=== PATIENT | female | born 1995 | race Caucasian/White ===

== ENCOUNTER 2017-10-28 18:09 | Emergency (ER) | payer OTHER ==
[2017-10-28 19:16] LABS: Hemoglobin 13.9 gm/dl (10.1-14.3); Mean Corpuscular HGB Conc 33 % (30-34); Mean Corpuscular Hemoglobin 27 pg (28-32); Mean Corpuscular Volume 82 fl (79-97); Platelet Count 267 K/mm3 (140-440); Red Cell Distribution Width 15.4 % (13.2-15.2)
[2017-10-28] MEDS ORDERED: ZOFRAN ONE (19:18)
[2017-10-28 19:22] LABS: HCG Qualitative,Urine Negative (Negative)
[2017-10-28 19:25] LABS: Bilirubin,Urine NEG (Negative); Blood,Urine NEG (Negative); Color,Urine Yellow (Yellow); Mucus,Urine 1+ /HPF; Urobilinogen,Urine < 2.0 mg/dL (<2.0); WBC,Urine < 1.0 /HPF (0.0-6.0)
[2017-10-28 19:28] LABS: BUN/Creatinine Ratio 17; Blood Urea Nitrogen 10 mg/dL (7-17); Calcium 9.7 mg/dL (8.4-10.2); Hemolysis Index 6
[2017-10-28] MEDS ORDERED: NACL 0.9% 1000 ML 1,000 ML IV ONE (19:40)
[2017-10-28] MEDS ORDERED: ZOFRAN IV ONE (19:40)
--- NOTE | 2017-10-28 20:24 | Emergency Department Report ---
HPI - General Chief Complaint: Seizure Time Seen by Provider: 10/28/17 19:18 - HPI HPI: 22-year-old female presents to the emergency department via EMS from home after she had a witnessed seizure. The patient had some tonic clonic like movements for about 2 or 3 minutes. She bit the right side of her tongue. She did not return to a normal baseline mental status for about 30 minutes or until she presented to the emergency department. She does not have any previous seizure history or any past medical history. She was not given anything for her symptoms prior to presentation. She does not have a primary care physician. She admits to tobacco, marijuana and occasional Xanax use recreationally. No recent travel or sick contacts at home. She denies any headache, vision change , slurred speech or any other neurological deficits. ED Past Medical Hx - Past Medical History Previous Medical History?: No - Surgical History Past Surgical History?: No - Social History Smoking Status: Current Every Day Smoker Substance Use Type: Alcohol, Marijuana - Medications Home Medications: Home Medications Medication Instructions Recorded Confirmed Last Taken Type levETIRAcetam [Keppra TAB] 500 mg PO BID #60 tablet 10/28/17 Unknown Rx ED Review of Systems ROS: Stated complaint: SEIZURE Other details as noted in HPI Comment: All other systems reviewed and negative Constitutional: denies: chills, fever Eyes: denies: eye pain, eye discharge, vision change ENT: other (bit her tongue). denies: ear pain, throat pain Respiratory: denies: cough, shortness of breath, wheezing Cardiovascular: denies: chest pain, palpitations Gastrointestinal: denies: abdominal pain, nausea, diarrhea Genitourinary: denies: urgency, dysuria, discharge Musculoskeletal: denies: back pain, joint swelling, arthralgia Skin: denies: rash, lesions Neurological: other (seizure). denies: weakness Physical Exam - Physical Exam Vital Signs: Vital Signs 10/28/17 10/28/17 10/28/17 18:45 18:49 19:15 Temperature 98.2 F 98.1 F Pulse Rate 72 69 Respiratory 13 18 Rate Blood Pressure 125/75 Blood Pressure 133/79 [Left] O2 Sat by Pulse 98 98 98 Oximetry Physical Exam: GENERAL: The patient is well-developed well-nourished. HENT: Normocephalic. Atraumatic. Patient has moist mucous membranes. Patient has multiple abrasions and/or small lacerations to the right side of her tongue consistent with biting her tongue. No drooling or trismus. Posterior oropharynx clear. EYES: Extraocular motions are intact. Pupils equal reactive to light bilaterally. No nystagmus. NECK: Supple. Trachea is midline. CHEST/LUNGS: Clear to auscultation. There is no respiratory distress noted. HEART/CARDIOVASCULAR: Regular. There is no tachycardia. There is no murmur. ABDOMEN: Abdomen is soft, nontender. Patient has normal bowel sounds. There is no abdominal distention. SKIN: Skin is warm and dry. NEURO: The patient is awake, alert, and oriented. The patient is cooperative. The patient has no focal neurologic deficits. The patient has normal speech. Cranial nerves II through XII grossly intact. MUSCULOSKELETAL: There is no tenderness or deformity. There is no limitation range of motion. There is no evidence of acute injury. ED Course Vital Signs 10/28/17 10/28/17 10/28/17 18:45 18:49 19:15 Temperature 98.2 F 98.1 F Pulse Rate 72 69 Respiratory 13 18 Rate Blood Pressure 125/75 Blood Pressure 133/79 [Left] O2 Sat by Pulse 98 98 98 Oximetry ED Medical Decision Making - Lab Data Result diagrams: 10/28/17 19:03 10/28/17 19:03 - Radiology Data Radiology results: report reviewed PROCEDURE: CT head without contrast. TECHNIQUE: Computerized tomography of the head was performed without contrast material. HISTORY: Seizure. COMPARISON: No prior studies are available for comparison. FINDINGS: There is motion artifact on a few of the images. The ventricles are normal in size. The osborne matter and white matter appear normal. There are no mass lesions. There is no intracranial hemorrhage. The calvarium appears intact. The mastoid air cells and visualized paranasal sinuses are clear. IMPRESSION: Normal study. Transcribed By: MRM Dictated By: ROSAS GONZÁLES MD Electronically Authenticated By: ROSAS GONZÁLES MD Signed Date/Time: 10/28/172025 - Medical Decision Making Patient presented after having a witnessed seizure without any seizure history. It sounds like she had some type of a postictal period prior to arrival but since presentation she is awake and alert. There are no focal, motor or sensory deficits in her cranial nerves are intact. CT scan of the head does not show any bleed, shift, mass, ischemic changes or any acute process. The blood work is unremarkable for any etiology of her symptoms. She was covered with a dose of Keppra. Patient had one episode of vomiting when she first arrived that looked mostly bloody. However I believe the patient may have swallowed a moderate amount of blood from her tongue lacerations/abrasions and then this irritated her GI tract and she vomited up. After this one episode, the patient has not had any further vomiting. She has no abdominal or midline chest pain. Patient's vital signs are stable throughout her ED course. There has been no further seizure-like activity and the patient has been reevaluated multiple times over multiple hours. She appears safe for discharge home at this time. She will be started on Keppra and has been given a neurology referral. She has been instructed to return to the emergency Department with any worsening of her symptoms or any acute distress. - Differential Diagnosis epilepsy, substance abuse, hyponatremia, hypoglycemia Critical Care Time: No Critical care attestation.: If time is entered above; I have spent that time in minutes in the direct care of this critically ill patient, excluding procedure time. ED Disposition Clinical Impression: New onset seizure Disposition: DC-01 TO HOME OR SELFCARE Is pt being admited?: No Condition: Stable Instructions: New-Onset Seizure in Adults (ED) Additional Instructions: Please follow up with a primary care physician and neurologist in the next few days. I have given you a referral for a local neurologist, Dr. Soriano. I have started you on a seizure medication called Keppra that is to be taken twice daily. Please try and stay away from any alcohol or illicit drug use. Return to the emergency department with any recurrent seizures, worsening of your symptoms, or with any acute distress. Prescriptions: levETIRAcetam [Keppra TAB] 500 mg PO BID #60 tablet Referrals: PRIMARY MD LUIS [Primary Care Provider] - 3-5 Days JUDY SORIANO MD [Staff Physician] - 3-5 Days Time of Disposition: 22:33
--- NOTE | 2017-10-28 20:30 | Cat Scan Report ---
FINAL REPORT PROCEDURE: CT head without contrast. TECHNIQUE: Computerized tomography of the head was performed without contrast material. HISTORY: Seizure. COMPARISON: No prior studies are available for comparison. FINDINGS: There is motion artifact on a few of the images. The ventricles are normal in size. The osborne matter and white matter appear normal. There are no mass lesions. There is no intracranial hemorrhage. The calvarium appears intact. The mastoid air cells and visualized paranasal sinuses are clear. IMPRESSION: Normal study.
[2017-10-28] MEDS ORDERED: KEPPRA 1,000 MG/NS 0.75% 100ML 1,000 MG/100 ML BAG IV ONE (20:32)
[2017-10-28] MEDS ORDERED: TYLENOL PO ONE (20:54)
[2017-10-28 23:27] VITALS: BP 132/74
== END 2017-10-28 23:30 | disposition home or self-care (01) ==
LOC: ED 18:09
DX: R56.9 Unspecified convulsions (principal); F17.200 Nicotine dependence, unspecified, uncomplicated; F12.10 Cannabis abuse, uncomplicated
CPT/HCPCS: 36415; 70450; 80048; 81001; 81025; 84443; 85027; 93005; 93010; 96374; 96375; 99285; J1953; J2405; J7030; 96361